=== PATIENT | male | born 1965 | race Caucasian/White ===

== ENCOUNTER 2019-03-26 16:41 | Inpatient (IN) | payer OTHER ==
[~2019-03-26] VITALS: Ht 182.9 cm; Wt 113.9 kg
--- OUTSIDE RECORDS SUMMARY | 2019-03-26 16:43 | XMS REPORT ---
Author Author [facility] [place] Address Unknown Phone Unavailable Care Team Providers Care Heel Padder Name Role Phone Unavailable Unavailable Payers Payer Name Policy Type Policy Number Effective Date Expiration Date Problems This patient has no known problems. Allergies, Adverse Reactions, Alerts Allergy Name Allergy Type Status Severity Reaction(s) Onset Date Inactive Date Treating Clinician Comments DA Active U 2008-09-03 00:00:00 No Known Contrast Allergies DA Active U 2008-09-03 00:00:00 No Known Drug Allergies DA Active U 2008-09-03 00:00:00 No Known Other Allergies DA Active U 2008-09-03 00:00:00 No Known Drug Intolerances DA Active U 2003-10-23 00:00:00 Medications This patient has no known medications.
[2019-03-26] MEDS ORDERED: SODIUM CHLORIDE 0.9% 1000ML 1,000 ML IV STA (16:44)
[2019-03-26 17:28] LABS: BASOPHILS % 0.2 % (0.0-1.0); EOSINOPHILS % 0.1 % (0.0-6.0); HEMOGLOBIN 15.3 g/dL (14.0-18.0); LYMPHOCYTES # (AUTO) 0.9 (1.0-3.2); LYMPHOCYTES % 4.7 % (18.0-39.1); MEAN CORPUSCULAR HEMOGLOBIN 28.3 pg (28-32); MEAN CORPUSCULAR VOLUME 83.3 fL (81-99); MONOCYTES # (AUTO) 1.8 (0.2-0.8); NEUTROPHILS # (AUTO) 16.4 (2.1-6.9); NEUTROPHILS % 84.1 % (38.7-80.0); PLATELET COUNT 155 x10e3/uL (140-360); RED CELL DISTRIBUTION WIDTH 13.2 % (11.7-14.4)
[2019-03-26 17:29] LABS: BILIRUBIN,URINE SMALL (NEGATIVE); CLARITY,URINE CLEAR (CLEAR); KETONES,URINE 1+ (NEGATIVE); LEUKOCYTE ESTERASE ,URINE SMALL (NEGATIVE); NITRITE,URINE NEGATIVE (NEGATIVE); PROTEIN,URINE DIPSTICK 2+ (NEGATIVE); URINE UROBILINOGEN 0.2 mg/dL (0.2 - 1)
[2019-03-26 17:44] LABS: COLOR,URINE AMBER (YELLOW)
[2019-03-26 17:45] LABS: BACTERIA,URINE MODERATE /HPF; MUCUS,URINE MODERATE (RARE); WBC,URINE (MAN) >50 /HPF (0-5)
[2019-03-26 17:46] LABS: ALANINE AMINOTRANSFERASE 42 IU/L (0-55); ALBUMIN 3.9 g/dL (3.5-5.0); ALBUMIN/GLOBULIN RATIO 1.1 (0.8-2.0); ALKALINE PHOSPHATASE 56 IU/L (40-150); BLOOD UREA NITROGEN 11 mg/dL (7-26); BUN/CREATININE RATIO 11 (6-25); CALCIUM 10.7 mg/dL (8.4-10.2); CARBON DIOXIDE 25 mmol/L (22-29); CHLORIDE 101 mmol/L (98-107); CREATININE, SERUM 1.03 mg/dL (0.72-1.25); EST GLOMERULAR FILTRATION RATE > 60 ML/MIN (60-); GLUCOSE 131 mg/dL (74-118); MAGNESIUM 1.5 MG/DL (1.3-2.1); SODIUM 137 mmol/L (136-145)
[2019-03-26] MEDS ORDERED: SODIUM CHLORIDE 0.9% 1000ML 1,000 ML IV SCH (18:00)
[2019-03-26 19:01] LABS: LYMPHOCYTES % (MANUAL) 6 % (19-48); MONOCYTES % (MANUAL) 13 % (3.4-9.0); NEUTROPHILS % (MANUAL) 81 % (40-74); PLATELET ESTIMATE ADEQUATE; PLATELET MORPHOLOGY COMMENT NORMAL; RBC MORPHOLOGY COMMENT NORMAL
--- NOTE | 2019-03-26 19:06 | Diagnostic Imaging Report ---
EXAM: CT Abdomen and Pelvis WITHOUT contrast INDICATION: Hematuria, Renal stone protoco. COMPARISON: None. TECHNIQUE: Abdomen and pelvis were scanned utilizing a multidetector helical scanner from the lung base to the pubic symphysis without administration of IV contrast. Absence of intravenous contrast decreases sensitivity for detection of focal lesions and vascular pathology. Coronal and sagittal reformations were obtained. Routine protocol was performed. IV CONTRAST: None ORAL CONTRAST: Water COMPLICATIONS: None RADIATION DOSE: Total DLP: 971 mGy*cm Estimated effective dose: (DLP x 0.015 x size factor) mSv CTDIvol has been reviewed. It is below the limits set by the Radiation Protocol Committee (RPC). FINDINGS: LINES and TUBES: None. LOWER THORAX: Unremarkable HEPATOBILIARY: steatosis No biliary ductal dilation. GALLBLADDER: There is a stone in the gallbladder. No wall thickening. SPLEEN: No splenomegaly. PANCREAS: No focal masses or ductal dilatation. ADRENALS: No adrenal nodules KIDNEYS/URETERS: No hydronephrosis. No cystic or solid mass lesions. Two punctate 2 mm nonobstructive calculi are seen in the right kidney. GI TRACT: No abnormal distention, wall thickening, or evidence of bowel obstruction. PELVIC ORGANS/BLADDER: The bladder is underdistended. LYMPH NODES: No lymphadenopathy. Small focus of calcification is seen in the left lower quadrant likely representing calcified node. VESSELS: Unremarkable. PERITONEUM / RETROPERITONEUM: No free air or fluid. BONES: Unremarkable. SOFT TISSUES: There is a small fat-containing right inguinal hernia. IMPRESSION: Two punctate 2 mm nonobstructive calculi are seen in the right kidney. No hydronephrosis. Signed by: Abraham Hamilton MD on 03/26/2019 7:02 PM
[2019-03-26] MEDS: PHENAZOPYRIDINE HCL 100 MG TAB PO SCH ×2 (21:13→21:18)
[2019-03-26] MEDS: CEFTRIAXONE SOD 1 GM/NS 50 ML 50 ML IV SCH ×2 (21:13→21:18)
[2019-03-26] MEDS ORDERED: METOPROLOL TART50 MG PO (21:19)
[2019-03-26] MEDS ORDERED: LOSARTAN POTASS50 MG PO (21:19)
[2019-03-26] MEDS ORDERED: ATORVASTATIN CA10 MG PO (21:19)
--- NOTE | 2019-03-26 21:30 | NUR ---
Pt admitted to room 212 from home, via stretcher. Pt able to transfer to bed easily. Pt alert and orient to name, hospital, time and diagnosis: dysuria, UTI, leukocytosis. Pt pleasant and cooperative. VSS, on room air. Pt continent B/B. BS active x4 last bowel 03/26, x2 loose stools. Hematuria dark red urine. Denies pain at this time. Skin dry and intact. Ambulatory with a steady gait. Oriented to room. Call light within reach. Bed low and locked. Will continue to monitor.
[2019-03-26 22:02] VITALS: BP 112/64
[2019-03-26] MEDS ORDERED: METOPROLOL TARTRATE 50 MG TAB PO ONE (22:15)
[2019-03-26 22:27] VITALS: BP 112/64
[2019-03-26 22:45] VITALS: BP 112/64
[2019-03-27] VITALS (7 sets, daily range): BP systolic 105–138; BP diastolic 56–72
--- NOTE | 2019-03-27 03:58 | NUR ---
Dr. Pedro Luis nguyen, ordered consult with Dr. Fernandez, Rocephin 1gm IV Q24hrs, Urine cultures (already pending), and NS @60mls/hr.
[2019-03-27] MEDS: SODIUM CHLORIDE 0.9% 1000ML 1,000 ML IV SCH ×2 (04:00→21:30)
--- NOTE | 2019-03-27 04:08 | NUR ---
H&P cc: dysuria and hematuria HPI: 53yoM, PCP Dr.B. Diana, developed dysuria and hematuria and subjective fever at home. Found to have UTI. PMH: HTN, Obesity PShx: none Allergies; see emr Fh/SH; ; no cigs meds; see MAR ROS; no cp/sob/STONE/vision changes/skin rash/back pain/confusion/mood changes v/s; revd PE tired appearing anicteric ns1s2 mod bs soft nt nd no e/t a&ox3; worrell skin dry n. affect labs/meds revd A/P: 53yoM Sepsis UTI Hematuria Right nephrolithiasis 2mm nonobstructive Hyperglycemia Obesity BMI 34.0 Hypercalcemia PLAN IVF; IV ceftriaxone; urine cultures; urology eval hba1c/lipids scd/pepcid Eleuterio Farrell MD,PhD.
[2019-03-27 06:38] LABS: BASOPHILS % 0.2 % (0.0-1.0); EOSINOPHILS % 0.1 % (0.0-6.0); HEMOGLOBIN 14.2 g/dL (14.0-18.0); LYMPHOCYTES # (AUTO) 1.1 (1.0-3.2); MEAN CORPUSCULAR HEMOGLOBIN 27.8 pg (28-32); MEAN CORPUSCULAR VOLUME 84.3 fL (81-99); MONOCYTES # (AUTO) 1.4 (0.2-0.8); MONOCYTES % 7.5 % (4.4-11.3); NEUTROPHILS # (AUTO) 15.5 (2.1-6.9); NEUTROPHILS % 84.8 % (38.7-80.0); PLATELET COUNT 144 x10e3/uL (140-360); RED CELL DISTRIBUTION WIDTH 13.2 % (11.7-14.4)
--- NOTE | 2019-03-27 07:04 | NUR ---
received shift change report from night clerk auditor RN, walking rounds completed, pt sitting up in bed, awake, alert. oriented, no c/o pain at this time, no s/s of distress.
[2019-03-27 07:05] LABS: BLOOD UREA NITROGEN 11 mg/dL (7-26); BUN/CREATININE RATIO 12 (6-25); CALCIUM 9.7 mg/dL (8.4-10.2); CARBON DIOXIDE 23 mmol/L (22-29); CHLORIDE 103 mmol/L (98-107); EST GLOMERULAR FILTRATION RATE > 60 ML/MIN (60-); GLUCOSE 113 mg/dL (74-118); SODIUM 136 mmol/L (136-145)
[2019-03-27 07:42] LABS: CHOL/HDL RATIO 2.9 (3.9-4.7)
[2019-03-27] MEDS: METOPROLOL TARTRATE 50 MG TAB PO SCH ×2 (08:48→18:03)
[2019-03-27] MEDS: PHENAZOPYRIDINE HCL 100 MG TAB PO SCH ×3 (08:48→18:03)
[2019-03-27] MEDS: CEFTRIAXONE SOD 1 GM/NS 50 ML 50 ML IV SCH (08:48)
--- NOTE | 2019-03-27 11:00 | Consultation ---
DATE OF CONSULTATION: 03/27/2019 Urologic Consultation Consultation is called by Dr. Cloud. CHIEF UROLOGIC COMPLAINT AND REASON FOR CONSULTATION: Gross hematuria. HISTORY OF PRESENT ILLNESS: Timbo Adorno is a 53-year-old male admitted to the hospital with difficulty urinating, nocturia four times per night, frequency every 30 minutes, difficulty emptying the bladder, positive dysuria, positive gross hematuria. PAST MEDICAL HISTORY: Hypertension. MEDICATIONS: Please see MAR. ALLERGIES: NKDA. SOCIAL HISTORY: Denied smoking or drinking. FAMILY HISTORY: Denied urologic stones or malignancies. REVIEW OF SYSTEMS: Noncontributory, other than problems mentioned above for 12-organ systems. PHYSICAL EXAMINATION: GENERAL: Middle-aged male, in no distress currently. VITAL SIGNS: Temperature 99.8, pulse 96, respirations 20, blood pressure 117/66. HEENT: Sclerae anicteric. NECK: Supple. BACK: Without costovertebral angle tenderness bilaterally. ABDOMEN: Soft, it is nontender, it is nondistended. No palpable mass. No palpable hernias. No palpable groin lymphadenopathy. : Normal male external genitalia. EXTREMITIES: No edema. NEURO: Moves all four extremities. PSYCH: Alert and mood appropriate. SKIN: Intact. Normal color. PERTINENT LABORATORY DATA: Hemoglobin of 14, hematocrit 43, platelet count 144,000, and white cell count 18,000. Sodium 136, potassium 4.0, chloride 103, bicarb 23, BUN 11, creatinine 0.9, glucose 113. Urinalysis greater than 50 whites, [address] scan revealing two 2 mm kidney stones on the right side, nonobstructing. IMPRESSION: 1. Right 2 mm kidney stone x2. 2. Gross hematuria. 3. Urinary tract infection. 4. Benign prostatic hypertrophy. 5. Thrombocytopenia. 6. Leukocytosis. PLAN: The patient is begun on broad-spectrum IV antibiotics, agree with this. We will employ a trial of passage of stone. The patient electively will need cystoscopy once infection is resolved. Thank you for allowing me to participate in the care of your patient. I will be happy to follow along with you. MD RENETTA Pollack/HEATHER /[id number] cc: MD Eleuterio Barnard MD
--- NOTE | 2019-03-27 15:40 | NUR ---
spoke with Dr. Cloud regarding pt's elevated temperature of 100.8; he ordered PRN Tylenol and Phenergan for nausea. will continue to monitor.
[2019-03-27] MEDS ORDERED: PROMETHAZINE 12.5MG/ NACL 0.9% 12.5 MG/50 ML BAG IV PRN (15:45)
[2019-03-27] MEDS: ACETAMINOPHEN 325 MG TAB PO PRN ×2 (18:03→23:05)
--- NOTE | 2019-03-27 19:00 | NUR ---
Complete nursing rounds with morning nurse. Pt alert and oriented to name. Lying in bed HOB 60 degrees. Denies pain at this time. Call light within reach. Will continue to monitor.
[2019-03-28] VITALS (9 sets, daily range): BP systolic 113–136; BP diastolic 59–79
--- NOTE | 2019-03-28 06:05 | NUR ---
IM- progress note O/N no events ROS; no cp/sob/STONE/vision changes/skin rash/back pain/confusion/mood changes v/s; revd PE tired appearing anicteric ns1s2 mod bs soft nt nd no e/t a&ox3; worrell skin dry n. affect labs/meds revd A/P: 53yoM Sepsis UTI Hematuria Right nephrolithiasis 2mm nonobstructive Hyperglycemia Obesity BMI 34.0 Hypercalcemia PLAN IVF; IV ceftriaxone; urine cultures; urology eval hba1c/lipids scd/pepcid 03/28 Hba1c/LDL 5.6/45. GNR UTI; cont abx; high fevers; make inpt. check labs Eleuterio Farrell MD,PhD.
[2019-03-28 06:55] LABS: BASOPHILS % 0.1 % (0.0-1.0); EOSINOPHILS % 0.2 % (0.0-6.0); HEMATOCRIT 40.3 % (38.2-49.6); HEMOGLOBIN 13.8 g/dL (14.0-18.0); LYMPHOCYTES # (AUTO) 0.4 (1.0-3.2); MEAN CORPUSCULAR HEMOGLOBIN 28.5 pg (28-32); MEAN CORPUSCULAR HGB CONC 34.2 g/dL (31-35); MEAN CORPUSCULAR VOLUME 83.3 fL (81-99); MONOCYTES # (AUTO) 0.5 (0.2-0.8); MONOCYTES % 5.7 % (4.4-11.3); NEUTROPHILS # (AUTO) 7.3 (2.1-6.9); NEUTROPHILS % 88.3 % (38.7-80.0); PLATELET COUNT 134 x10e3/uL (140-360); RED BLOOD COUNT 4.84 x10e6/uL (4.3-5.7)
--- NOTE | 2019-03-28 06:55 | NUR ---
Rounds completed with morning nurse. Pt walking from bathroom. Denies pain or discomfort at this time. No acute distress noted
--- NOTE | 2019-03-28 07:05 | NUR ---
RCD PT AT BED PT IS ALERT AND ORIENTED PT RESTING ON BED NO SIGNS OF ANY DISTRESS NOTED IV PATENT AND RUNNING 60 ML /HR BY SALINE FLUSH BED LOW AND LOCKED CALL LIGHT IN REACH
[2019-03-28 07:15] LABS: ANION GAP 11.8 mmol/L (8-16); BLOOD UREA NITROGEN 12 mg/dL (7-26); BUN/CREATININE RATIO 14 (6-25); CALCIUM 9.3 mg/dL (8.4-10.2); CARBON DIOXIDE 24 mmol/L (22-29); CHLORIDE 103 mmol/L (98-107); CREATININE, SERUM 0.85 mg/dL (0.72-1.25); EST GLOMERULAR FILTRATION RATE > 60 ML/MIN (60-); GLUCOSE 116 mg/dL (74-118); POTASSIUM 3.8 mmol/L (3.5-5.1); SODIUM 135 mmol/L (136-145)
[2019-03-28 08:00] LABS: BAND NEUTROPHILS % (MANUAL) 1 %; LYMPHOCYTES % (MANUAL) 7 % (19-48); MONOCYTES % (MANUAL) 8 % (3.4-9.0); NEUTROPHILS % (MANUAL) 84 % (40-74)
[2019-03-28 08:01] LABS: PLATELET ESTIMATE SLIGHTLY DECREASED; PLATELET MORPHOLOGY COMMENT FEW LARGE; RBC MORPHOLOGY COMMENT NORMAL
[2019-03-28] MEDS: LEVOFLOXACIN 500 MG TAB PO SCH (08:30)
[2019-03-28] MEDS: ACETAMINOPHEN 325 MG TAB PO PRN ×3 (08:45→23:03)
[2019-03-28] MEDS: METOPROLOL TARTRATE 50 MG TAB PO SCH ×2 (09:00→17:00)
[2019-03-28] MEDS: PHENAZOPYRIDINE HCL 100 MG TAB PO SCH ×3 (09:00→17:11)
[2019-03-28] MEDS: CEFTRIAXONE SOD 1 GM/NS 50 ML 50 ML IV SCH (09:00)
[2019-03-28] MEDS: SODIUM CHLORIDE 0.9% 1000ML 1,000 ML IV SCH (13:20)
--- NOTE | 2019-03-28 19:15 | NUR ---
PT RESTING ON BED BED SIDE REPORT GIVEN TO ONCOMING NURSE
[2019-03-29 04:30] VITALS: BP 138/79
[2019-03-29] MEDS ORDERED: KEFLEX500 MG PO (06:01)
--- NOTE | 2019-03-29 06:02 | NUR ---
D/C summary Principal dx: Sepsis Proteus mirabilis UTI Hematuria Right nephrolithiasis 2mm nonobstructive Hyperglycemia Obesity BMI 34.0 Hypercalcemia PLAN IVF; IV ceftriaxone; urine cultures; urology eval hba1c/lipids scd/pepcid 03/28 Hba1c/LDL 5.6/45. GNR UTI; cont abx; high fevers; make inpt. check labs d/c home f/u pcp 1 week and urology 2 weeks stable d/c>35mins Eleuterio Farrell MD,PhD.
[2019-03-29 08:00] VITALS: BP 144/75
[2019-03-29 08:01] VITALS: BP 144/75
--- NOTE | 2019-03-29 08:04 | NUR ---
Pt received in bed aox4 and able to verbalize needs. Denies any pain. Pt is afebrile right now. Waiting for Dr. Jensen to round to see if he will clear him to discharge.
[2019-03-29] MEDS: LEVOFLOXACIN 500 MG TAB PO SCH (09:01)
[2019-03-29] MEDS: CEFTRIAXONE SOD 1 GM/NS 50 ML 50 ML IV SCH (09:01)
[2019-03-29] MEDS: METOPROLOL TARTRATE 50 MG TAB PO SCH (09:02)
[2019-03-29] MEDS: ACETAMINOPHEN 325 MG TAB PO PRN (09:08)
[2019-03-29] MEDS: SODIUM CHLORIDE 0.9% 1000ML 1,000 ML IV SCH (09:10)
[2019-03-29 12:00] VITALS: BP 124/76
[2019-03-29] MEDS ORDERED: LEVAQUIN500 MG PO (13:27)
--- NOTE | 2019-03-29 13:49 | NUR ---
Dr. Jensen came to see pt and gave the ok that he can be discharged from his standpoint. He left him scripts for Levaquin 750mg PO x14 days. Pt discharged home at this time. Pt and family verbalized understanding of all discharge instructions and follow up appointments. 0 s/s of acute distress noted at time of discharge.
== END 2019-03-29 13:49 | disposition home or self-care (01) | DRG 872 ==
LOC: ER 16:41 → ERHOLD 20:09 → MED/SURG2 21:29 → OBSVTOIN 03-28 06:05
PROVIDERS: ADMIT Internal Medicine; ATTEND Internal Medicine
DX: A41.9 Sepsis, unspecified organism (principal); N30.01 Acute cystitis with hematuria; N20.0 Calculus of kidney; D72.829 Elevated white blood cell count, unspecified; N40.0 Benign prostatic hyperplasia without lower urinary tract symptoms; D69.6 Thrombocytopenia, unspecified; I10 Essential (primary) hypertension; Z87.891 Personal history of nicotine dependence; F10.21 Alcohol dependence, in remission; Z82.49 Family history of ischemic heart disease and other diseases of the circulatory system; R73.9 Hyperglycemia, unspecified; E66.9 Obesity, unspecified; Z68.34 Body mass index [BMI] 34.0-34.9, adult; E83.52 Hypercalcemia; B96.4 Proteus (mirabilis) (morganii) as the cause of diseases classified elsewhere
CPT/HCPCS: 36415; 74176; 80048; 80053; 80061; 81001; 82948; 83036; 83735; 85025; 87040; 87086; 87186; 93005; 99284; G0378; J0696; J2550; J7030